=== PATIENT | male | born 1955 | race Caucasian/White ===

== ENCOUNTER 2017-10-31 14:16 | Day surgery (SDC) | payer BC ==
[~2017-10-31] VITALS: Ht 177.8 cm; Wt 111.4 kg
[2017-10-31] VITALS (8 sets, daily range): BP systolic 103–140; BP diastolic 60–77
[2017-10-31] MEDS ORDERED: LORazepam 0.5 MG tablet PO PRN (14:40)
[2017-10-31] MEDS ORDERED: normal saline 1000ml 1,000 ML IV SCH (14:40)
[2017-10-31] MEDS ORDERED: diphenhydrAMINE 25mg capsule PO PRN (14:40)
[2017-10-31] MEDS ORDERED: CHOL2000 PO (14:54)
[2017-10-31] MEDS ORDERED: SYN0.088T PO (14:54)
[2017-10-31] MEDS ORDERED: NITR0.4T SL (14:54)
[2017-10-31] MEDS ORDERED: GLUC-221 PO (14:54)
[2017-10-31] MEDS ORDERED: PREG225C PO (14:54)
[2017-10-31] MEDS ORDERED: LISI-600 PO (14:54)
[2017-10-31] MEDS ORDERED: VITA-268 PO (14:54)
[2017-10-31] MEDS ORDERED: CANA300T PO (14:54)
[2017-10-31] MEDS ORDERED: SITA100T11 PO (14:54)
[2017-10-31] MEDS ORDERED: ASPI-1264 PO (14:54)
[2017-10-31] MEDS ORDERED: CYAN100070 PO (14:54)
[2017-10-31] MEDS ORDERED: OMEP40CA37 PO (14:54)
[2017-10-31] MEDS ORDERED: INSU300I (14:54)
[2017-10-31] MEDS ORDERED: METF500T PO (14:54)
[2017-10-31] MEDS ORDERED: GEMF600T4 PO (14:54)
[2017-10-31] MEDS ORDERED: KRIL1CAP19 PO (14:54)
[2017-10-31] MEDS ORDERED: lidocaine 1%/epinephrine 1:100,000 injection 50ml vial ONE (16:17)
[2017-10-31] MEDS ORDERED: iohexol 350MG/ML 100ml bottle IV ONE (16:17)
[2017-10-31] MEDS ORDERED: fentaNYL/PF 50MCG/1 ML 2ML syringe ONE (16:39)
[2017-10-31] MEDS ORDERED: midazolam 2 mg/2 ml injection ONE ×2 (16:39→17:05)
== END 2017-10-31 20:05 | disposition home or self-care (01) ==
LOC: SSTAY O 14:16
PROVIDERS: ATTEND Internal Medicine Interventional Cardiology
DX: I25.10 Atherosclerotic heart disease of native coronary artery without angina pectoris (principal); I25.2 Old myocardial infarction; G47.33 Obstructive sleep apnea (adult) (pediatric); I10 Essential (primary) hypertension; E78.5 Hyperlipidemia, unspecified; E11.9 Type 2 diabetes mellitus without complications; E03.9 Hypothyroidism, unspecified; Z95.5 Presence of coronary angioplasty implant and graft; Z72.89 Other problems related to lifestyle; Z79.84 Long term (current) use of oral hypoglycemic drugs; Z79.4 Long term (current) use of insulin; Z88.5 Allergy status to narcotic agent; Z87.891 Personal history of nicotine dependence; Z79.82 Long term (current) use of aspirin; Z79.899 Other long term (current) drug therapy; Z98.890 Other specified postprocedural states; Z88.8 Allergy status to other drugs, medicaments and biological substances
CPT/HCPCS: 82948; 93005; 93458; 99152; 99153; A6257; C1769; J1644; J2250; J3010; J3490; J7030; Q9967; A4620

== ENCOUNTER 2018-02-09 01:53 | Outpatient (CLI) | payer BC ==
[~2018-02-09 01:53] MED LIST: ASPI-1264 PO; CANA300T PO; CHOL2000 PO; CYAN100070 PO; GEMF600T89 PO; GLUC-221 PO; INSU300I; KRIL1CAP19 PO; LISI-600 PO; METF500T PO; NITR0.4T SL; OMEP40CA37 PO; PREG225C PO; SITA100T11 PO; SYN0.088T PO; VITA-268 PO
== END 2018-02-09 23:59 | disposition home or self-care (01) ==
LOC: DIABETIC 01:53
PROVIDERS: ATTEND Specialist
DX: E11.65 Type 2 diabetes mellitus with hyperglycemia (principal); I10 Essential (primary) hypertension; Z79.84 Long term (current) use of oral hypoglycemic drugs; Z88.5 Allergy status to narcotic agent; Z79.82 Long term (current) use of aspirin; Z79.899 Other long term (current) drug therapy
CPT/HCPCS: G0108

== ENCOUNTER 2018-03-21 00:28 | Outpatient (CLI) | payer BC | END 2018-03-21 23:59 | disposition home or self-care (01) | LOC: DIABETIC 00:28 | PROVIDERS: ATTEND Specialist | DX: E11.9 Type 2 diabetes mellitus without complications (principal); I10 Essential (primary) hypertension; Z79.84 Long term (current) use of oral hypoglycemic drugs; Z88.5 Allergy status to narcotic agent; Z79.82 Long term (current) use of aspirin; Z79.4 Long term (current) use of insulin | CPT/HCPCS: G0108 ==

== ENCOUNTER 2018-06-15 01:28 | Outpatient (CLI) | payer MEDICARE, BC | END 2018-06-15 23:59 | disposition home or self-care (01) | LOC: DIABETIC 01:28 | PROVIDERS: ATTEND Specialist | DX: E11.65 Type 2 diabetes mellitus with hyperglycemia (principal); Z79.84 Long term (current) use of oral hypoglycemic drugs | CPT/HCPCS: G0108 ==

== ENCOUNTER 2018-09-11 04:49 | Outpatient (CLI) | payer MEDICARE, BC ==
[~2018-09-11 04:49] MED LIST changes: +OMEP40CA13 PO; -OMEP40CA37 PO
== END 2018-09-11 23:59 | disposition home or self-care (01) ==
LOC: DIABETIC 04:49
PROVIDERS: ATTEND Specialist
DX: E11.9 Type 2 diabetes mellitus without complications (principal); Z71.3 Dietary counseling and surveillance
CPT/HCPCS: G0108

== ENCOUNTER 2018-12-12 00:13 | Outpatient (CLI) | payer MEDICARE, BC | END 2018-12-12 23:59 | disposition home or self-care (01) | LOC: DIABETIC 00:13 | PROVIDERS: ATTEND Specialist | DX: E11.65 Type 2 diabetes mellitus with hyperglycemia (principal); I10 Essential (primary) hypertension; Z79.84 Long term (current) use of oral hypoglycemic drugs; Z79.899 Other long term (current) drug therapy; Z88.5 Allergy status to narcotic agent | CPT/HCPCS: G0108 ==

== ENCOUNTER 2019-03-15 01:15 | Outpatient (CLI) | payer MEDICARE, BC | END 2019-03-15 23:59 | disposition home or self-care (01) | LOC: DIABETIC 01:15 | PROVIDERS: ATTEND Specialist | DX: E11.65 Type 2 diabetes mellitus with hyperglycemia (principal) | CPT/HCPCS: G0108 ==